=== PATIENT | female | born 1965 | race Caucasian/White ===

== ENCOUNTER 2020-01-20 12:24 | Emergency (ER) | payer OTHER ==
[2020-01-20] MEDS ORDERED: cephALEXin 250 MG CAPSULE PO STA (14:06)
[2020-01-20] MEDS ORDERED: HYDROcod/ACETAM 5/325 MG TABLET PO STA (14:06)
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
[2020-01-20 14:44] VITALS: BP 145/81
== END 2020-01-20 14:54 | disposition home or self-care (01) ==
LOC: ED 12:24
DX: S90.811A Abrasion, right foot, initial encounter (principal); S80.811A Abrasion, right lower leg, initial encounter; S40.811A Abrasion of right upper arm, initial encounter; V00.831A Fall from motorized mobility scooter, initial encounter
CPT/HCPCS: 99282; 99284; A9270